=== PATIENT | female | born 1945 | race African-American/Black ===

== ENCOUNTER 2017-04-25 10:24 | Outpatient (CLI) | payer BC, MEDICARE ==
--- NOTE | 2017-04-25 11:34 | MMO ---
BILATERAL SCREENING MAMMOGRAM: DATE: 04/25/17 HISTORY: 71-year-old female for screening mammography. COMPARISON: 10/15/15, 12/11/13. FINDINGS: Bilateral MLO and CC views of the breasts show scattered fibroglandular breast tissue. Benign-appeari ng calcifications are seen in both breasts. Vascular calcifications are seen. There is no evidence of suspicious mass, suspicious cluster of microcalcifications, or area of architectural distortion. Interpretation of this mammogram was performed with the assistance of computer-aided detection. IMPRESSION: BIRADS 2: Benign Finding(s) Annual screening mammography is recommended. POS: ANGEL
== END 2017-04-25 10:25 | disposition home or self-care (01) ==
LOC: SCSMAMMO 10:24
PROVIDERS: ATTEND Family Medicine
DX: Z12.31 Encounter for screening mammogram for malignant neoplasm of breast (principal)
CPT/HCPCS: 77067

== ENCOUNTER 2017-09-16 05:46 | Day surgery (SDC) | payer BC, MEDICARE ==
--- NOTE | 2017-09-15 11:49 | SS ---
DATE OF ADMISSION: 09/16/2017 HISTORY OF PRESENT ILLNESS: This is a 72-year-old female comes for a colonoscopy f or colon cancer screening. The patient has no specific GI symptoms. Her bowel movements are regular . There is no family history of colon cancer. ALLERGIES: SULFA, IODINE, NAPROXEN. SOCIAL HISTORY: The patient does not smoke or drink alcohol. MEDICAL ILLNESSES: 1. Hypertension. 2. Peripheral vascular disease. 3. Past history of peptic ulcer. 4. Rheumatoid arthritis. PHYSICAL EXAMINATION: VITAL SIGNS: Pulse is 70, blood pressure 130/70. HEENT: Conjunctivae clear. CARDIOVASCULAR: First and second heart sounds normal. LUNGS: Clear to auscultation. ABDOMEN: Soft to palpate. No organomegaly. No tenderness. No masses. EXTREMITIES: Reveal no edema. ADMITTING DIAGNOSIS: A 72-year-old female comes for colonoscopy for colon cancer screening.
[2017-09-15 14:49] VITALS: BMI 30.5
[2017-09-16] MEDS ORDERED: PROPOFOL 200 MG/20 ML VIAL ONE (17:42)
[2017-09-16] MEDS ORDERED: Lidocaine 1% PF 5 ML VIAL ONE (17:42)
--- NOTE | 2017-09-17 02:41 | OP ---
DATE OF SURGERY: 09/16/2017 OPERATIVE PROCEDURE: Colonoscopy. PREOPERATIVE DIAGNOSIS: A 72-year-old -Citizen Of [place] female undergoing colonoscopy for colon canc er screening. POSTOPERATIVE DIAGNOSIS: Normal colonoscopy except for hemorrhoids. PROCEDURE NOTE: The patient was placed on her left lateral position and was given sedation by Anesth esia Department. A rectal exam was done before the scope was advanced into the rectum. The patient found to have external hemorrhoids. No other lesion felt. Then, Pentax video colonoscope was introd uced into the rectum and advanced all the way to the cecum. The prep was good. The mucosa appears n ormal throughout the colon. The appendiceal orifice, ileocecal valve, and cecum, no pathology seen. Withdrawal from cecum to ascending colon, hepatic flexure, no pathology. The transverse colon, sple amparo flexure, descending colon, sigmoid colon, no pathology. Rectal hemorrhoids. DISCHARGE PLANNING: A 72-year-old -Citizen Of [place] female came for the colonoscopy for colon cancer screening. She underwent a colonoscopy. There are no pathology seen. DISCHARGE RECOMMENDATIONS: Patient advised to call me if she has abdominal pain, hematochezia, or fe wendy. In the absence of any of her symptoms will come back in 2 weeks.
== END 2017-09-16 09:13 | disposition home or self-care (01) ==
LOC: SDC 05:46
PROVIDERS: ATTEND Internal Medicine Gastroenterology
PROC: 0DJD8ZZ Inspection of Lower Intestinal Tract, Via Natural or Artificial Opening Endoscopic (ICD-10-PCS; principal; 2017-09-16)
DX: Z12.11 Encounter for screening for malignant neoplasm of colon (principal); K64.4 Residual hemorrhoidal skin tags; I10 Essential (primary) hypertension; I73.9 Peripheral vascular disease, unspecified; M06.9 Rheumatoid arthritis, unspecified; Z79.899 Other long term (current) drug therapy; Z88.2 Allergy status to sulfonamides; Z88.6 Allergy status to analgesic agent; Z91.041 Radiographic dye allergy status
CPT/HCPCS: J2001; J2704

== ENCOUNTER 2018-08-14 10:01 | Outpatient (CLI) | payer BC, MEDICARE ==
--- NOTE | 2018-08-14 10:47 | MMO ---
Bilateral MAMMO Bilat Screen [facility]. CLINICAL HISTORY: Patient is 73 years old and is seen for screening. The patient has the following family history of breast cancer: sister, at age 32. The patient has no personal history of cancer. VIEWS: The views performed were: bilateral craniocaudal with tomosynthesis and bilateral mediolateral oblique with tomosynthesis. FILMS COMPARED: The present examination has been compared to prior imaging studies performed at [facility] on 10/01/2011, 10/02/2012, 12/11/2013, 10/15/2015 and 04/25/2017. MAMMOGRAM FINDINGS: There are scattered fibroglandular densities. There are stable benign appearing calcifications seen in both breasts. There are also vascular calcifications. There are no suspicious masses, suspicious calcifications, or new areas of architectural distortion. IMPRESSION: THERE IS NO MAMMOGRAPHIC EVIDENCE OF MALIGNANCY. A ROUTINE FOLLOW-UP MAMMOGRAM IN 1 YEAR IS RECOMMENDED. THE RESULTS OF THIS EXAM WERE SENT TO THE PATIENT. ACR BI-RADS Category 2 - Benign finding MAMMOGRAPHY NOTE: 1. A negative mammogram report should not delay a biopsy if a dominant of clinically suspicious mass is present. 2. Approximately 10% to 15% of breast cancers are not detected by mammography. 3. Adenosis and dense breasts may obscure an underlying neoplasm.
== END 2018-08-14 10:02 | disposition home or self-care (01) ==
LOC: BICMAMMO 10:01
PROVIDERS: ATTEND Family Medicine
DX: Z12.31 Encounter for screening mammogram for malignant neoplasm of breast (principal); Z80.3 Family history of malignant neoplasm of breast
CPT/HCPCS: 77063; 77067

== ENCOUNTER 2019-06-27 09:07 | Outpatient (CLI) | payer BC, MEDICARE ==
[2019-06-27 15:09] LABS: #Basophils 0.1 thou/uL (0.0-0.2); #Eosinphils 0.2 thou/uL (0.0-0.7); #Lymphocytes 2.4 thou/uL (1.20-3.40); #Monocytes 0.4 thou/uL (0.11-0.59); #Neutrophils 3.1 thou/uL (1.40-6.50); %Basophils 0.9 % (0.0-1.0); %Eosinophils 2.9 % (0.0-10.0); %Lymphocytes 39.4 % (21.0-51.0); %Monocytes 5.9 % (0.0-10.0); Hemoglobin 12.7 g/dL (12.0-16.0); Mean Platelet Volume 9.3 fL (7.4-10.4); Platelet Count 196 thou/uL (130-400); Red Blood Cell (RBC) Count 4.11 mill/uL (4.20-5.40); White Blood Cell (WBC) Count 6.1 thou/uL (4.8-10.8)
[2019-06-27 15:25] LABS: Anion Gap 12 mmol/L (10-20); BUN (Urea Nitrogen) 12 mg/dL (9.8-20.1); Calc. Creatinine Clearance 0 mL/min (70-130); Calcium 9.3 mg/dL (7.8-10.44); Carbon Dioxide 27 mmol/L (23-31); Chloride 104 mmol/L (98-107); Estimated GFR-MDRD 59; Glucose 88 mg/dL (83-110); Potassium 3.7 mmol/L (3.5-5.1); Sodium 139 mmol/L (136-145)
--- NOTE | 2019-06-28 12:12 | EKG ---
Test Reason : Blood Pressure : / mmHG Vent. Rate : 074 BPM Atrial Rate : 074 BPM P-R Int : 160 ms QRS Dur : 080 ms QT Int : 396 ms P-R-T Axes : 059 073 040 degrees QTc Int : 439 ms Normal sinus rhythm Normal ECG No previous ECGs available Confirmed by DR. Ward WYNNE MD ([id number]) on 06/28/2019 12:11:51 PM Referred By: IERO Confirmed By:DR. Ward WYNNE MD
== END 2019-06-27 09:08 | disposition home or self-care (01) ==
LOC: LABBT 09:07
PROVIDERS: ATTEND Orthopaedic Surgery
DX: Z01.818 Encounter for other preprocedural examination (principal); G56.22 Lesion of ulnar nerve, left upper limb
CPT/HCPCS: 80048; 85025; 93005; 93010

== ENCOUNTER 2019-08-13 06:59 | Outpatient (CLI) | payer BC, MEDICARE, OTHER ==
[2019-08-13 13:23] LABS: #Eosinphils 0.2 thou/uL (0.0-0.7); #Lymphocytes 2.4 thou/uL (1.20-3.40); #Monocytes 0.6 thou/uL (0.11-0.59); #Neutrophils 5.3 thou/uL (1.40-6.50); %Basophils 0.4 % (0.0-1.0); %Eosinophils 2.3 % (0.0-10.0); %Lymphocytes 28.4 % (21.0-51.0); %Monocytes 6.6 % (0.0-10.0); %Neutrophils 62.4 % (42.0-75.0); Hemoglobin 12.3 g/dL (12.0-16.0); Mean Corpuscular HGB CONC 33.7 g/dL (32.0-36.0); Mean Corpuscular Hemoglobin 31.2 pg (27.0-31.0); Mean Corpuscular Volume 92.3 fL (78.0-98.0); Platelet Count 214 thou/uL (130-400); RBC Distribution Width 13.9 % (11.5-14.5); Red Blood Cell (RBC) Count 3.96 mill/uL (4.20-5.40); White Blood Cell (WBC) Count 8.4 thou/uL (4.8-10.8)
[2019-08-13 13:40] LABS: Anion Gap 12 mmol/L (10-20); BUN (Urea Nitrogen) 14 mg/dL (9.8-20.1); Calc. Creatinine Clearance 0 mL/min (70-130); Calcium 9.5 mg/dL (7.8-10.44); Carbon Dioxide 29 mmol/L (23-31); Chloride 100 mmol/L (98-107); Estimated GFR-MDRD 82; Glucose 81 mg/dL (83-110); Potassium 3.4 mmol/L (3.5-5.1); Sodium 138 mmol/L (136-145)
[2019-08-13 18:50] LABS: SARS-CoV-2 MS2 Positive; SARS-CoV-2 N Gene Negative; SARS-CoV-2 S Gene Negative; SARS-CoV-2 orf1ab Negative
== END 2019-08-13 07:00 | disposition home or self-care (01) ==
LOC: LABBT 06:59
PROVIDERS: ATTEND Orthopaedic Surgery
DX: Z01.812 Encounter for preprocedural laboratory examination (principal); Z11.59 Encounter for screening for other viral diseases; G56.22 Lesion of ulnar nerve, left upper limb
CPT/HCPCS: 80048; 85025; 87635; U0003

== ENCOUNTER 2019-08-17 09:10 | Day surgery (SDC) | payer BC, MEDICARE ==
[2019-08-13 11:17] VITALS: BMI 27.4
[2019-08-17] MEDS ORDERED: Ketorolac Tromethamine 30 MG/ML VIAL ONE (11:29)
[2019-08-17] MEDS ORDERED: Dexamethasone 20 MG/5 ML VIAL ONE (11:29)
[2019-08-17] MEDS ORDERED: Lidocaine 1% PF 5 ML VIAL ONE (11:29)
[2019-08-17] MEDS ORDERED: EPHEDRINE 25 MG/5 ML SYRINGE ONE (11:29)
[2019-08-17] MEDS ORDERED: PROPOFOL 200 MG/20 ML VIAL ONE (11:29)
[2019-08-17] MEDS ORDERED: Fentanyl 100 MCG/2 ML VIAL ONE (12:01)
[2019-08-17] MEDS ORDERED: Bupivacaine PF 0.5% 30 ML VIAL ONE (12:44)
[2019-08-17] MEDS ORDERED: HYDROcodone/Acetaminophen 5/325 mg Tablet ONE (15:14)
--- NOTE | 2019-08-17 23:57 | OP ---
DATE OF PROCEDURE: 08/17/2019 PREOPERATIVE DIAGNOSIS: Left cubital tunnel syndrome. POSTOPERATIVE DIAGNOSIS: Left cubital tunnel syndrome. PROCEDURES PERFORMED: 1. Left open cubital tunnel release. 2. Placement of a long-arm splint, left upper extremity. ALUMINUM POOL INSTALLER: None. ESTIMATED BLOOD LOSS: Minimal. COMPLICATIONS: None. IMPLANTS: There were no implants. DISPOSITION: She went to recovery room in stable condition. ANESTHESIA: She did have a general anesthetic. INDICATIONS: This is a very pleasant 74-year-old female, who comes in complaining about numbness, tingling, and her ulnar innervated fingers as well as starting to lose strength and abilities to do fine movements. At this time, the patient had an EMG/NCV, which was done, which showed her to have significant ulnar nerve compression at the elbow. At this time, she wished to have this released. DESCRIPTION OF PROCEDURE: After verbal consent forms were explained and signed , Ms. Kiser was taken to the operative room and at this time was given general anesthetic. Once the level of anesthesia was appropriate, tourniquet was placed up as far as possible on the left arm and the left upper extremity was then prepped and draped in standard surgical fashion. At this time, an incision was made between the olecranon and the medial condyle down through skin only. Bipolar cautery was used to clear any brisk venous bleeding. Loupe dissection was used throughout the procedure. At this time, we got down through the subcutaneous tissue. We then got our scissors and was able to dissect out the nerve. Following this nerve proximally into the brachium, we made sure there is no more restrictions taking this and freeing this across cubital tunnel, which was where the patient had the most significant compression of the nerve down distally to the first motor branch. Once this was done, we did clean the area off the flexor forearm muscle origin mass, so that the nerve could rest in this area and once this was done, we did take some large Vicryl and closed our tissue to her cubital tunnel. We then placed a moist Ray-Elodia sponge into the wound and let the tourniquet down. Bipolar cautery was used to clear any brisk venous bleeding. We then thoroughly irrigated and dried. At this time, I did take the arm through full range of motion and found the nerve to sit nicely outside of the groove and was nice and free. I then used more irrigation followed by using 2-0 Vicryl and then multiple interrupted nylon stitches to close this wound. We then placed plain Marcaine into the skin flaps for postop pain relief. We then placed a bulky sterile dressing and made a long-arm splint for the left upper extremity. Once this had dried, the sling was attached to the patient's neck and she was then awakened. She was taken to the recovery room in stable condition. All counts were correct at the end of the case and she did receive preoperative IV antibiotics. Job ID: [id number] [facility]
== END 2019-08-17 15:36 | disposition home or self-care (01) ==
LOC: SDC 09:10
PROVIDERS: ATTEND Orthopaedic Surgery
PROC: 01N40ZZ Release Ulnar Nerve, Open Approach (ICD-10-PCS; principal; 2019-08-17)
DX: G56.22 Lesion of ulnar nerve, left upper limb (principal); E78.5 Hyperlipidemia, unspecified; I10 Essential (primary) hypertension; M19.90 Unspecified osteoarthritis, unspecified site; M85.80 Other specified disorders of bone density and structure, unspecified site; Z79.899 Other long term (current) drug therapy
CPT/HCPCS: J0690; J1100; J1885; J2001; J2704; J3010; S0020